=== PATIENT | male | born 1950 | race Two or more races ===

== ENCOUNTER → 2016-09-26 | Day surgery (SDC) | payer OTHER ==
--- NOTE | 2016-09-25 18:16 | Pre-Procedure Note/Attestation ---
Pre-Procedure Note/Attestation Complete Prior to Procedure Planned Procedure: bilateral Procedure Narrative: 1.Septoplasty 2. Submucous resection bilateral inferior turbinates Indications for Procedure Pre-Operative Diagnosis: 1. Nasal septal deviation 2. Hypertrophied bilateral inferior turbinates Attestation I attest that I discussed the nature of the procedure; its benefits; risks and complications; and alternatives (and the risks and benefits of such alternatives ), prior to the procedure, with the patient (or the patient's legal dealer compliance representative). I attest that, if there was a reasonable possibility of needing a blood transfusion, the patient (or the patient's legal dealer compliance representative) was given the [facility] standardized written summary, pursuant to the [place] Blood Safety Act ([place] Health and Safety Code # 1645, as amended). I attest that I re-evaluated the patient just prior to the surgery and that there has been no change in the patient's H&P, which has been done by Dr. Ronak De La Rosa and singed in orders by me. NELLI SHOEMAKER Sep 25, 2016 18:16
[2016-09-26] VITALS (9 sets, daily range): BP systolic 108–124; BP diastolic 65–83
[~2016-09-26] VITALS: Ht 175.3 cm; Wt 90.7 kg
[~2016-09-26] MED LIST: Alfentanil 2ml Inj ONE; Atropine Inj 1mg/10ml Syr IV PRN; Bupivacaine w/Epi 0.5% 30ml Vial INJ ONE; Cocaine 4% Vial TOPIC ONE; Dexamethasone 4mg/ml vial IVP ONE; DiphenhydrAMINE 50mg/ml Inj IVP PRN; HYDROmorphone 1mg/ml Carpuject SUBQ PRN; Hydromorphone 0.5mg/0.5ml inj IVP PRN; Ketorolac 30mg Inj IV PRN; Ketorolac 60mg Inj IV PRN; LORazepam Inj 2mg/ml 1ml IV PRN; LR 1000ml 1,000 ML IVLG SCH; LR 1000ml ONE; Labetalol 5mg/ml 20ml vial IV PRN; Lidocaine 1% 10mg/ml/Epi 0.005mg/ml 30ml vial INJ ONE; Lidocaine 1% MPF 10mg/ml 5ml ONE; Meperidine 25mg/ml Inj IV PRN; Metoclopramide 10mg/2ml Inj IVP PRN; Midazolam 2mg/2ml Inj IVP PRN; Midazolam 2mg/2ml Inj ONE; NKM; Norco 5mg/325mg tab ORAL PRN; Norco 7.5mg/325mg tab ORAL PRN; Oxycodone/Acetaminophen 5-325 ORAL PRN; Propofol 10mg/ml 100ml btl IV ONE; Saline Nasal Gel (Ayr) NASAL ONE; ceFAZolin sod 1 GM in D5W 55 ML IV ONE; fentaNYL 100 mcg/2 mL IV PRN
--- NOTE | 2016-09-26 07:06 | Anethesia Preoperative Eval ---
Anesthesia Pre-op PMH/ROS General Date of Evaluation: Sep 26, 2016 Time of Evaluation: 07:21 Anesthesiologist: Septoplasty ASA Score: ASA 3 Mallampati Score Class I : Soft palate, uvula, fauces, pillars visible Class II: Soft palate, uvula, fauces visible Class III: Soft palate, base of uvula visible Class IV: Only hard plate visible Mallampati Classification: Class II Surgeon: Octaviano Diagnosis: Deviated Septum Surgical Procedure: Septoplasty, Turbinectomies Anesthesia History: none Family History: no anesthesia problems Allergies: Coded Allergies: No Known Allergies (Unverified , 09/25/16) Medications: see eMAR Past Medical History Cardiovascular: Reports: other - HL Endocrine: Reports: DM Other: obesity - BMI 30 PSxH Narrative: Bilateral Inguinal Hernia Anesthesia Pre-op Phys. Exam Physician Exam Last Vital Signs Date Time Temp Pulse Resp B/P Pulse Ox O2 Delivery O2 Flow Rate FiO2 09/26/16 06:26 97.1 81 18 118/65 95 Room Air Constitutional: NAD Neurologic: CN 2-12 intact Cardiovascular: RRR Respiratory: CTA Gastrointestinal: S/NT/ND Airway Exam Mallampati Score: Class II MO: full ROM: limited Teeth: intact Anesthesia Pre-op A/P Risk Assessment & Plan Assessment: ASA 3 Plan: GA, BIS Status Change Before Surgery: No Pre-Antibiotics Dru Gram Ancef IV Given Within 1 Hr of Incision: Yes Time Given: 07:31 Ivan Cortes MD Sep 26, 2016 07:06
--- NOTE | 2016-09-26 07:52 | Immediate Post-Op Evaluation ---
Immediate Post-Op Evalulation Immediate Post-Op Evalulation Procedure: Septoplasty, Turbinectomies Date of Evaluation: Sep 26, 2016 Time of Evaluation: 08:22 IV Fluids: 300 LR Blood Products: 0 Estimated Blood Loss: 25 Urinary Output: 0 Blood Pressure Systolic: 108 Blood Pressure Diastolic: 72 Pulse Rate: 77 Respiratory Rate: 16 O2 Sat by Pulse Oximetry: 98 Temperature (Fahrenheit): 98.6 Pain Score (1-10): 2 Nausea: No Vomiting: No Complications 0 Patient Status: awake, reacts, patent, extubated, none Dru Gram Ancef IV Given Within 1 Hr of Incision: Yes Time Given: 07:31 Ivan Cortes MD Sep 26, 2016 07:52
--- NOTE | 2016-09-26 07:53 | 48 Hour Post Anesthesia Eval ---
Post Anesthesia Evaluation Procedure: Septoplasty, Turbinectomies Date of Evaluation: Sep 26, 2016 Time of Evaluation: 10:36 Blood Pressure Systolic: 114 0: 72 Pulse Rate: 77 Respiratory Rate: 18 Temperature (Fahrenheit): 98.6 O2 Sat by Pulse Oximetry: 97 Airway: patent Nausea: No Vomiting: No Pain Intensity: 2 Hydration Status: adequate Cardiopulmonary Status: Stable Mental Status/LOC: patient returned to baseline Follow-up Care/Observations: 0 Post-Anesthesia Complications: 0 Follow-up care needed: ready to discharge Ivan Cortes MD Sep 26, 2016 07:53
--- NOTE | 2016-09-26 08:09 | Discharge Instructions ---
Discharge Instructions Discharge Instructions Follow up with: Dr. Shoemaker-next week in his office-pt has appt already Diet: 2 GM sodium (low sodium) Resume Normal Activity?: No Activity: light activity Pneumonia Vaccine: pt refused vaccine Influenza Vaccine (Mar to Aug): pt refused vaccine Follow Up Orders Pt has printed instructions given to him in my office last week during pre op Return to Work/School on: Oct 10, 2016 Special Instructions ice to face x 48 hours For Surgical Patients Dressing Care: may change For Congestive Heart Failure Reminder Report to your physician any weight gain of 5 pounds or more in one week. NELLI SHOEMAKER Sep 26, 2016 08:09
--- NOTE | 2016-09-26 08:12 | Brief Operative Note ---
Immediate Post Operative Note Operative Note Chief Complaint: Nasal airway obstruction Pre-op Diagnosis: 1. Nasal septal deviation 2. Hypertrophied bilateral inferior turbinates Procedure: 1. Septoplasty 2. Submucous resection bilateral inferior turbinates Post-op Diagnosis: same as pre-op Surgeon: Nelil Shoemaker Medical Practice Manager: none Additional Surgeons: none Anesthesiologist: Sophia Anesthesia: general Specimen: none Complications: none Condition: stable Estimated Blood Loss: volume - 25 cc Drains: none Packing: Stamberger nasal gel Implant(s) used?: No NELLI SHOEMAKER Sep 26, 2016 08:12
--- NOTE | 2016-09-26 15:08 | Operative Note - Dictated ---
DATE OF OPERATION: 09/26/2016 SURGEON: Raul Brumfield M.D. CONSULTANT RN: None. ANESTHESIOLOGIST: Ivan Cortes M.D. Anesthesia: LMA general anesthesia as well as 10 mL of 50:50 mixture of 1% lidocaine with 1:100,000 epinephrine and Marcaine 0.5% with 1:200,000 epinephrine. Additionally, 4 mL of 4% topical cocaine placed on four nasal pledgets, two on either nostril. INDICATION FOR PROCEDURE: Nasal airway obstruction due to a septal deviation to the right and bilateral hypertrophied inferior turbinates. PREOPERATIVE DIAGNOSIS: Nasal airway obstruction due to a septal deviation to the right and bilateral hypertrophied inferior turbinates. POSTOPERATIVE DIAGNOSIS: Nasal airway obstruction due to a septal deviation to the right and bilateral hypertrophied inferior turbinates. FINDINGS: Nasal airway obstruction due to a septal deviation to the right and bilateral hypertrophied inferior turbinates. PROCEDURE: 1. Septoplasty. 2. Submucous resection, right inferior turbinate. 3. Submucous resection, left inferior turbinate. TECHNIQUE: The patient was prepped and draped in usual manner. Time-out was performed. All agreed to the procedure and equipment necessary. Injection of the aforementioned lidocaine, Marcaine, and epinephrine mixture into the inferior turbinates and septum bilaterally. This was after prep with Betadine. I then made a Gonzalo incision on the right hand side of the septum elevating with a dental elevator subbperiostally and subperichondrally, and removed lower 5 mm of the quadrangular cartilage leaving an inferior centimeter by the columella. This greatly reduced the obstruction of the septal deviation. This was sewn back into place with two 4-0 chromic sutures. I made an incision in the anteroinferior aspect of the right inferior turbinate with #15 blade. Then a #45 radiofrequency wand was placed at a setting of 6 after coating with saline x10 seconds 2 times in the inferior turbinate. I then proceeded to outfracture with a Boies elevator. I then turned my attention to the contralateral inferior turbinate. I made an incision with #15 blade, placed the #45 radiofrequency wand at a setting of 6 after coating with saline gel for 10 seconds x2. I then outfractured with a Boies elevator. The area was suctioned clean. Stammberger nasal gel was placed along with mustache dressing. Sponge and needle count was correct. All concurred in the room. ESTIMATED BLOOD LOSS: 25 mL. COMPLICATIONS: None. DRAINS: None. The patient was stable in the recovery room 10 minutes after the case without any significant bleeding. Raul Brumfield M.D. DR: Amy JOB#: [id number] CC: CIRILO
== END | disposition home or self-care (01) ==
LOC: SUR 05:48
DX: J34.2 Deviated nasal septum (principal); J34.3 Hypertrophy of nasal turbinates; R73.03 Prediabetes; L20.9 Atopic dermatitis, unspecified; E78.5 Hyperlipidemia, unspecified; E66.9 Obesity, unspecified; Z68.30 Body mass index [BMI] 30.0-30.9, adult
CPT/HCPCS: 30140; 30520; J0690; J2250; J2405; J2704; J3490; J7120; 94003; 94150